=== PATIENT | female | born 1930 | race Caucasian/White ===

== ENCOUNTER → 2016-07-31 | Outpatient (CLI) | payer BC ==
[~2016-07-31] MED LIST: ACT/35 PO; ASPI81TA28 PO; CALC8.5C PO; CALCTAB7 PO; CHOL200010 PO; COQ10 PO; CYNI1000 SQ; DNSIS60 SQ; ERGO1CAP35 PO; LISI-461 PO; LISI2.5T5 PO; METO25TA3 PO; OXYC-57 PO; SIMV40TA4 PO; TYL325X PO
== END | disposition home or self-care (01) ==
LOC: C.LABFOXMH 08:47
PROVIDERS: ATTEND Internal Medicine
DX: M81.0 Age-related osteoporosis without current pathological fracture (principal)

== ENCOUNTER → 2016-08-13 | Outpatient (CLI) | payer BC ==
[2016-08-13 09:27] LABS: HEMATOCRIT 39.1 % (37-47); MEAN CELL VOLUME 94.4 fL (80-100); MEAN CORPUSCULAR HEMOGLOBIN 31.6 pg (25-34); MEAN CORPUSCULAR HGB CONC 33.5 g/dl (32-36); MEAN PLATELET VOLUME 10.2 fL (7.4-10.4); PLATELET COUNT 209 K/uL (130-400); RED BLOOD COUNT 4.14 M/uL (4.2-5.4); WHITE BLOOD COUNT 5.27 K/uL (4.8-10.8)
[2016-08-13 09:34] LABS: CALCIUM 8.5 mg/dl (8.5-10.1)
[2016-08-13 09:42] LABS: ALKALINE PHOSPHATASE 72 U/L (45-117); ALT/SGPT 15 U/L (12-78); AST/SGOT 17 U/L (15-37); BLOOD UREA NITROGEN 11 mg/dl (7-18); BUN/CREATININE RATIO 14.3 (10-20); CARBON DIOXIDE 30 mmol/L (21-32); CHLORIDE 106 mmol/L (98-107); GLUCOSE 93 mg/dl (70-99); POTASSIUM 3.9 mmol/L (3.5-5.1); SODIUM 141 mmol/L (136-145)
== END | disposition home or self-care (01) ==
LOC: C.LABFOXMH 08:41
PROVIDERS: ATTEND Internal Medicine
DX: R53.1 Weakness (principal)

== ENCOUNTER → 2016-12-09 | Outpatient (CLI) | payer BC ==
[~2016-12-09] MED LIST changes: -COQ10 PO; -CYNI1000 SQ; -DNSIS60 SQ; -LISI-461 PO
[2016-12-09 09:02] LABS: BLOOD UREA NITROGEN 11 mg/dl (7-18); BUN/CREATININE RATIO 16.2 (10-20); CALCIUM 8.5 mg/dl (8.5-10.1); CARBON DIOXIDE 26 mmol/L (21-32); CHLORIDE 111 mmol/L (98-107); CREATININE 0.68 mg/dl (0.60-1.20); GLUCOSE 82 mg/dl (70-99); POTASSIUM 4.2 mmol/L (3.5-5.1); SODIUM 143 mmol/L (136-145)
== END | disposition home or self-care (01) ==
LOC: C.LABFOXMH 08:36
PROVIDERS: ATTEND Internal Medicine
DX: I10 Essential (primary) hypertension (principal); M81.0 Age-related osteoporosis without current pathological fracture

== ENCOUNTER → 2017-04-01 | Day surgery (SDC) | payer BC ==
[2017-03-13 11:52] VITALS: Ht 154.9 cm; Wt 45.5 kg
[~2017-04-01] VITALS: Ht 154.9 cm; Wt 45.5 kg
[~2017-04-01] MED LIST changes: +500ML BSS 0.3ML EPI 1:1000PF IRRIG ONE; +ACETAMINOPHEN 325 MG TAB PO PRN; -ACT/35 PO; +AMVISC PLUS 0.8ML SYRINGE INT OCU ONE; +ATROPINE SULFATE 0.1 MG/ML 5ML SYR IV PRN; +BSS FLUSH ONE; -CALC8.5C PO; -CALCTAB7 PO; -CHOL200010 PO; +CYNI1000 SQ; +DNSIS60 SQ; -ERGO1CAP35 PO; +EpHEDrine SULFATE INJ 50 MG/ML AMP IV PRN; +EpINEphrine INJ 1MG/ML AMP 1 MG/ML AMP ONE; +LACTATED RINGER'S 1000ML 500 ML IV SCH; +LIDOCAINE 3.5% OPH GEL PER APPLICATION CHARGE ONE; +LIDOCAINE HCL 1% MPF 2 ML VIAL ONE; +LISI-461 PO; -LISI2.5T5 PO; +MIDAZOLAM HCL 1 MG/ML 2ML VIAL ONE; -OXYC-57 PO; +PHENYLEPHRINE HCL 10% OP SOLN PER DROP CHARGE OPR SCH; +POVIDONE-IODINE OP SOLN 30 ML BTL ONE; +PROPARACAINE 0.5% OP SOLN PER DROP CHARGE OPR SCH; -SIMV40TA4 PO; +TOBRAMYCIN/DEXAMETHASONE OPH OINT PER APPLN CHARGE ONE; -TYL325X PO
[2017-04-01] MEDS: PHENYLEPHRINE HCL 2.5% OP SOLN PER DROP CHARGE OPR SCH ×2 (07:38→07:45)
[2017-04-01] MEDS: TROPICAMIDE 1% OP SOLN PER DROP CHARGE OPR SCH ×2 (07:39→07:46)
[2017-04-01] MEDS: CYCLOPENTOLATE HCL 1% OP SOLN PER DROP CHARGE OPR SCH ×2 (07:40→07:47)
[2017-04-01] MEDS: KETOROLAC 0.5% OP SOLN PER DROP CHARGE OPR SCH ×2 (07:41→07:48)
[2017-04-01] MEDS: GATIFLOXACIN OP SOLN PER DROP CHARGE OPR SCH ×2 (07:42→07:52)
--- NOTE | 2017-04-01 08:24 | History & Physical Bridge - [place] ---
H&P Re-Evaluation Bridge Note: I have examined the patient, reviewed the History & Physical and in the interval since the performance of the History & Physical I have noted the following changes of clinical significance: No changes noted
--- NOTE | 2017-04-01 08:57 | [facility] Operative Report ---
Operative Report Date of Service Apr 01, 2017. Operative Report 1. PREOPERATIVE DIAGNOSIS: Cataract of the right eye. 2. POSTOPERATIVE DIAGNOSIS: Same. 3. PROCEDURE: Phacoemulsification with intraocular lens implantation of the right eye. SURGEON: Dr. Brien Fine. ANESTHESIA: Topical Lidocaine gel, 1% Non- Preserved intracameral Lidocaine, and monitored intravenous sedation. INDICATIONS FOR THE PROCEDURE: The patient is a 86 - year-old female with a history of cataract of the right eye causing significant visual impairment. The details of the proposed procedure were explained to the patient who asked appropriate questions and following discussion of all risks, benefits and alternatives agreed to have the procedure done. 4. OPERATION AND FINDINGS: DESCRIPTION OF PROCEDURE: After informed consent was obtained, the patient was brought to the Operating Room at the [facility]. The patient was placed in a supine position and then the right eye was prepped and draped in the usual sterile fashion for intraocular surgery. A drop of topical Lidocaine gel was placed in the operative eye. A wire lid speculum was then placed in the fornices. A corneal paracentesis was then created temporally. The Non-Preserved Lidocaine was then instilled into the anterior chamber. The anterior chamber was then pressurized with viscoelastic. A 2.0 mm clear corneal incision was then created temporally. A cystotome was inserted into the anterior chamber and used to create a tear in the anterior lens capsule. This capsular tear was then used to create a small flap and the flap was dragged in a counterclockwise direction in order to create a continuous curvilinear capsulorrhexis. Hydrodissection was accomplished with balanced salt solution. Phacoemulsification of the lens nucleus was then performed in a standard [id number] technique. The phaco time was 24 seconds with an average power of 21 %. The remaining cortical material was removed using irrigation aspiration. The capsular bag was then filled with viscoelastic. A [employer] Lomb MI60L +22.0 diopters lens was then loaded into the injector and injected into the capsular bag. The remaining viscoelastic was removed with the irrigation aspiration handpiece. The wound was hydrated and then checked and found to be watertight. The intraocular pressure was checked and found to be adequate. The wire lid speculum was removed and the patient's face was cleaned and dried. TobraDex ointment was placed in the inferior fornix. The patient was discharged to the Recovery Room having tolerated the procedure well. There were no complications. The patient will be seen tomorrow in the office for follow-up. I attest to the content of the Intraoperative Record and any orders documented therein. Any exceptions are noted below.
--- NOTE | 2017-04-01 08:57 | Discharge Instructions-SurgCtr ---
Discharge Instructions Date of Service Apr 01, 2017. Visit Reason for Visit: Cataract Right Eye Discharge Discharge Diagnosis / Problem: cataract Discharge Goals Goal(s): Improve function Activity Recommendations Activity Limitations: per Instructions/Follow-up section Anesthesia . Post Anesthesia Instructions: If you have had General Anesthesia or IV Sedation: * Do not drive today. * Resume driving when surgeon permits. * Do not make important decisions or sign legal documents today. * Call surgeon for: 1. Temperature elevations greater than 101 degrees F. 2. Uncontrollable pain. 3. Excessive bleeding. 4. Persistent nausea and vomiting. 5. Medication intolerance (nausea, vomiting or rash). * For nausea and vomiting use only clear liquids such as: tea, soda, bouillon until nausea subsides, then gradually increase diet as tolerated. * If you have any concerns or questions, call your surgeon's office. If physician is unavailable and it is an emergency, call 911 or go to the nearest emergency room. . Diet Recommendations Home Diet: resume previous diet Procedures Procedures Performed: Right Catarsact Phacoemulsification with Intraocular Lens Implant Pending Studies Studies pending at discharge: no Medical Emergencies . Who to Call and When: Medical Emergencies: If at any time you feel your situation is an emergency, please call 911 immediately. . Non-Emergent Contact Non-Emergency issues call your: [employer] [facility] . . "Provider Documentation" section prepared by Brien Fine. .
[2017-04-01 09:04] VITALS: TEMP 36.2
[2017-04-01 09:18] VITALS: BP 140/70; PULSE 69; O2SAT 100
--- NOTE | 2017-04-01 09:20 | Anesthesiology Progress Note ---
Anesthesia Post Op Note Date & Time Apr 01, 2017 at 09:20 Vital Signs Pain Intensity: 0 Vital Signs Past 12 Hours Date Time Temp Pulse Resp B/P (MAP) Pulse Ox O2 Delivery O2 Flow Rate FiO2 04/01/17 09:18 69 16 140/70 (93) 100 Room Air 04/01/17 09:04 36.2 60 16 146/72 (96) 99 Room Air 04/01/17 07:30 36.5 80 16 167/89 (115) 97 Room Air Notes Mental Status: alert / awake / arousable, participated in evaluation Nausea / Vomiting: adequately controlled Pain: adequately controlled Airway Patency, RR, SpO2: stable & adequate BP & HR: stable & adequate Hydration State: stable & adequate Anesthetic Complications: no major complications apparent
== END | disposition home or self-care (01) ==
LOC: X.SURG 07:06
PROVIDERS: ATTEND Ophthalmology
DX: H26.9 Unspecified cataract (principal); I10 Essential (primary) hypertension; E78.5 Hyperlipidemia, unspecified; Z79.82 Long term (current) use of aspirin; Z79.899 Other long term (current) drug therapy

== ENCOUNTER → 2017-05-13 | Outpatient (CLI) | payer BC ==
[~2017-05-13] MED LIST changes: -500ML BSS 0.3ML EPI 1:1000PF IRRIG ONE; -ACETAMINOPHEN 325 MG TAB PO PRN; -AMVISC PLUS 0.8ML SYRINGE INT OCU ONE; -ATROPINE SULFATE 0.1 MG/ML 5ML SYR IV PRN; -BSS FLUSH ONE; -EpHEDrine SULFATE INJ 50 MG/ML AMP IV PRN; -EpINEphrine INJ 1MG/ML AMP 1 MG/ML AMP ONE; -LACTATED RINGER'S 1000ML 500 ML IV SCH; -LIDOCAINE 3.5% OPH GEL PER APPLICATION CHARGE ONE; -LIDOCAINE HCL 1% MPF 2 ML VIAL ONE; -MIDAZOLAM HCL 1 MG/ML 2ML VIAL ONE; -PHENYLEPHRINE HCL 10% OP SOLN PER DROP CHARGE OPR SCH; -POVIDONE-IODINE OP SOLN 30 ML BTL ONE; -PROPARACAINE 0.5% OP SOLN PER DROP CHARGE OPR SCH; -TOBRAMYCIN/DEXAMETHASONE OPH OINT PER APPLN CHARGE ONE
[2017-05-13 10:49] LABS: HEMOGLOBIN 12.3 g/dL (12.0-16.0); MEAN CELL VOLUME 94.2 fL (80-100); MEAN CORPUSCULAR HEMOGLOBIN 32.2 pg (25-34); MEAN CORPUSCULAR HGB CONC 34.2 g/dl (32-36); MEAN PLATELET VOLUME 10.3 fL (7.4-10.4); PLATELET COUNT 212 K/uL (130-400); RED CELL DISTRIBUTION WIDTH CV 13.4 % (11.5-14.5); RED CELL DISTRIBUTION WIDTH SD 46.2 fL (36.4-46.3); WHITE BLOOD COUNT 5.55 K/uL (4.8-10.8)
[2017-05-13 11:03] LABS: ALBUMIN 2.6 gm/dl (3.4-5.0); ALT/SGPT 11 U/L (12-78); AST/SGOT 12 U/L (15-37); BLOOD UREA NITROGEN 14 mg/dl (7-18); CALCIUM 8.5 mg/dl (8.5-10.1); CARBON DIOXIDE 26 mmol/L (21-32); CREATININE 0.63 mg/dl (0.60-1.20); GLUCOSE 81 mg/dl (70-99); POTASSIUM 3.9 mmol/L (3.5-5.1); SODIUM 141 mmol/L (136-145)
[2017-05-13 11:13] LABS: ALKALINE PHOSPHATASE 52 U/L (45-117); TOTAL PROTEIN 5.5 gm/dl (6.4-8.2)
== END | disposition home or self-care (01) ==
LOC: C.LABFOXDH 08:56
PROVIDERS: ATTEND Internal Medicine
DX: R41.2 Retrograde amnesia (principal)

== ENCOUNTER 2017-07-03 12:33 | Emergency (ER) | payer BC ==
[~2017-07-03] VITALS: Ht 154.9 cm; Wt 45.7 kg
[2017-07-03 12:42] VITALS: BP 162/79; PULSE 59; TEMP 36.4; O2SAT 96; Ht 154.9 cm; Wt 45.7 kg
[2017-07-03] MEDS ORDERED: DONE5TAB9 PO (12:57)
[2017-07-03] MEDS ORDERED: CHOL2000 PO (12:58)
--- NOTE | 2017-07-03 13:30 | EMERGENCY ROOM VISIT NOTE ---
ED Visit Note First contact with patient: 12:46 I have seen and examined this patient with Zach Sandoval and generally agree with the treatment plan as discussed. Problem List Medical Problems: (1) Hypercholesteremia Status: Chronic (2) Hypertension Status: Chronic Surgical Problems: (1) Hx of breast biopsy Status: Resolved Current/Historical Medications Scheduled Aspirin (Aspirin Ec), 81 MG PO QAM Cholecalciferol (Vitamin D3), 1 CAP PO DAILY Cyanocobalamin (Cyanocobalamin), 1 DOSE SQ MONTHLY Denosumab (Prolia), 1 DOSE SQ Q6MO Donepezil HCl (Aricept), 1 TAB PO HS Lisinopril (Zestril), 10 MG PO QPM Metoprolol Succ (Toprol Xl) (Toprol-Xl), 25 MG PO QPM Allergies Coded Allergies: Penicillins (Verified Allergy, Unknown, ., 04/01/17) Sulfa Antibiotics (Verified Allergy, Unknown, ., 04/01/17) Vital Signs Date Time Temp Pulse Resp B/P (MAP) Pulse Ox O2 Delivery O2 Flow Rate FiO2 07/03/17 12:42 36.4 59 18 162/79 96 Room Air Departure Information Referrals Lisa Rashid (PCP) Patient Instructions My [facility]
--- NOTE | 2017-07-03 13:37 | DIAGNOSTIC IMAGING REPORT ---
R SHOULDER MIN 2 VIEWS ROUTINE CLINICAL HISTORY: R shoulder pain pain COMPARISON: None. DISCUSSION: Old fracture distal right clavicle. 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 Multiple old right-sided rib fractures. Moderate degenerative change of the glenohumeral joint. Deformity of the humeral neck possibly secondary to old trauma. There is no evidence for soft tissue swelling. IMPRESSION: Findings of extensive old posttraumatic change with mild superimposed degenerative change. No acute bony abnormalities appreciated. The above report was generated using voice recognition software. It may contain grammatical, syntax or spelling errors. Electronically signed by: Jayme Sheth M.D. 07/03/2017 1:36 PM Dictated Date/Time: 07/03/2017 1:33 PM
--- NOTE | 2017-07-03 13:58 | EMERGENCY ROOM VISIT NOTE ---
History First contact with patient: 12:46 Chief Complaint: SHOULDER PAIN Stated Complaint: RIGHT SHOULDER ABNORMALITY History of Present Illness The patient is a 86 year old female who presents to the Emergency Room with her daughter with complaints of right shoulder pain. According to the daughter, the patient is currently undergoing physical therapy at [facility] for her shoulder. She does not know how long she has been going therapy for her shoulder. The patient reports that she fell approximately 4-5 years ago and injured her shoulder. Review of prior medical records shows that she suffered a right clavicle fracture 20 years ago, and was seen by Dr. Spears at [facility]. The patient denies any recent injuries to the shoulder. She denies any pain extending into the chest or back. She currently denies any pain. Review of Systems 10 system review was performed and was negative except for pertinent positives and negatives as indicated in history of present illness Past Medical/Surgical History Medical Problems: (1) Alcohol Abuse-Unspec (2) Allergic rhinitis (3) Cerebrovascular disease (4) Diverticulosis Colon (W/O Ment Of Hemorrhage) (5) Hypercholesteremia (6) Hypertension (7) Megaloblastic anemia (8) Osteoporosis Nos (9) Tachycardia Nos (10) Tobacco Use Disorder Surgical Problems: (1) History of cataract surgery (2) Hx of breast biopsy Family History Heart disease Social History Smoking Status: Never Smoker Alcohol Use: occasionally Marital Status: Housing Status: lives with significant other, assisted living Occupation Status: retired Current/Historical Medications Scheduled Aspirin (Aspirin Ec), 81 MG PO QAM Cholecalciferol (Vitamin D3), 1 CAP PO DAILY Cyanocobalamin (Cyanocobalamin), 1 DOSE SQ MONTHLY Denosumab (Prolia), 1 DOSE SQ Q6MO Donepezil HCl (Aricept), 1 TAB PO HS Lisinopril (Zestril), 10 MG PO QPM Metoprolol Succ (Toprol Xl) (Toprol-Xl), 25 MG PO QPM Physical Exam Vital Signs Date Time Temp Pulse Resp B/P (MAP) Pulse Ox O2 Delivery O2 Flow Rate FiO2 07/03/17 12:42 36.4 59 18 162/79 96 Room Air Physical Exam CONSTITUTIONAL: Healthy and well nourished. Alert and oriented X 3 with positive affect. HEENT: Normocephalic, atraumatic. Pupils equal, round and reactive. NECK: Full active range of motion without discomfort. RESPIRATORY: Clear to auscultation bilaterally with no wheezing, crackles, rhonchi or stridor. CARDIOVASCULAR: Regular rate and rhythm with no murmurs, rubs or gallops. MUSCULOSKELETAL: Full range of motion of all joints without discomfort. Examination shows no obvious tenderness to palpation of the right shoulder. She does have a palpable deformity of the distal clavicle, suspected from her prior clavicle fracture. She has no worsening pain with internal or external rotation. She is limited to approximately 45 of abduction and forward flexion. Distal pulses are intact. INTEGUMENTARY: No rash or other significant dermatologic conditions noted. NEUROLOGIC: Right deltoid sensation is intact. Medical Decision & Procedures ER Provider Diagnostic Interpretation: My interpretation of right shoulder x-ray shows chronic findings of a displaced distal clavicle fracture and multiple healed rib fractures. She also has degenerative changes of the shoulder without evidence for acute fractures or dislocation. Radiologist report is as follows: R SHOULDER MIN 2 VIEWS ROUTINE CLINICAL HISTORY: R shoulder pain pain COMPARISON: None. DISCUSSION: Old fracture distal right clavicle. 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 Multiple old right-sided rib fractures. Moderate degenerative change of the glenohumeral joint. Deformity of the humeral neck possibly secondary to old trauma. There is no evidence for soft tissue swelling. IMPRESSION: Findings of extensive old posttraumatic change with mild superimposed degenerative change. No acute bony abnormalities appreciated. ED Course Patient history and physical exam were performed. Nurse's notes were reviewed. Vital signs were reviewed. The patient refused any analgesics, stating that she did not have any shoulder pain. X-rays of the right shoulder shows chronic changes without any acute findings. The patient has seen Dr. Spears in the past for her clavicle fractured. The patient was encouraged to call his office for further reevaluation. She was encouraged to continue with Tylenol as needed for any developing pain. The patient was happy with plan of care, and discharge with staff back to [facility]. The patient was also seen and examined by Dr. Ho, ED attending physician, who agrees with workup and plan of care. Medical Decision Medication Reconcilliation Current Medication List: was personally reviewed by [place] Blood Pressure Screening Patient's blood pressure: Normal blood pressure Impression Primary Impression: Right shoulder pain Departure Information Referrals Lisa Rashid (PCP) Patient Instructions My [facility] Problem Qualifiers Primary Impression: Right shoulder pain Chronicity: acute Qualified Codes: M25.511 - Pain in right shoulder
== END 2017-07-03 14:01 ==
LOC: C.EDB 12:34 → C.EDD 14:01
DX: M25.511 Pain in right shoulder (principal); E78.00 Pure hypercholesterolemia, unspecified; I10 Essential (primary) hypertension; Z98.49 Cataract extraction status, unspecified eye; Z79.82 Long term (current) use of aspirin; Z79.899 Other long term (current) drug therapy

== ENCOUNTER → 2017-08-14 | Outpatient (CLI) | payer BC ==
[~2017-08-14] MED LIST changes: +CHOL2000 PO; +DONE5TAB9 PO
[2017-08-14 09:53] LABS: ALBUMIN 3.3 gm/dl (3.4-5.0); ALT/SGPT 19 U/L (12-78); AST/SGOT 19 U/L (15-37); BLOOD UREA NITROGEN 9 mg/dl (7-18); CALCIUM 8.3 mg/dl (8.5-10.1); CARBON DIOXIDE 26 mmol/L (21-32); CREATININE 0.76 mg/dl (0.60-1.20); GLUCOSE 84 mg/dl (70-99); POTASSIUM 4.2 mmol/L (3.5-5.1); SODIUM 141 mmol/L (136-145)
[2017-08-14 09:55] LABS: ALKALINE PHOSPHATASE 59 U/L (45-117); TOTAL PROTEIN 6.3 gm/dl (6.4-8.2)
== END | disposition home or self-care (01) ==
LOC: C.LABFOXMH 09:06
PROVIDERS: ATTEND Internal Medicine Hospice and Palliative Medicine
DX: M62.838 Other muscle spasm (principal)